=== PATIENT | female | born 1970 ===

== ENCOUNTER 2017-05-04 18:47 | Emergency (ER) | payer SELFPAY ==
[2017-05-04 19:18] VITALS: BP 103/46
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
[2017-05-06 09:44] LABS: Call Hep C TO BE CALLED
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
[2017-05-06 15:47] LABS: HIV Index 1 0.06 Index
== END 2017-05-04 20:24 | disposition home or self-care (01) ==
LOC: UCEAST 18:47
DX: S51.832A Puncture wound without foreign body of left forearm, initial encounter (principal); S51.831A Puncture wound without foreign body of right forearm, initial encounter; W50.3XXA Accidental bite by another person, initial encounter; Y93.89 Activity, other specified; Y92.219 Unspecified school as the place of occurrence of the external cause; Y99.0 Civilian activity done for income or pay; Z11.4 Encounter for screening for human immunodeficiency virus [HIV]
CPT/HCPCS: 36415; 86703; 86706; 86803; 87340; 87522; 99212; G0463